=== PATIENT | male | born 1955 | race Caucasian/White ===

== ENCOUNTER 2017-03-02 18:50 | Emergency (ER) | payer OTHER ==
[~2017-03-02] VITALS: Ht 172.7 cm; Wt 119.6 kg
[~2017-03-02 18:50] MED LIST: AMBIEN10 MG PO; LEVEMIR FL100 UNIT/1 SC; LISINOPRIL20 MG PO; MOTRIN800 MG PO; OXYCODONE-APAP1 EACH PO; ZANTAC75 M1 PO
[2017-03-02] MEDS ORDERED: BACTRIM,SEPT1 TABLET PO (19:58)
[2017-03-02 20:54] LABS: HEMATOCRIT 47.4 % (38.0-50.0); MCH 25.8 PG (29.0-34.0); MCHC 31.9 G/DL (30.0-36.0); MCV 80.9 FL (86-99); MEAN PLAT.VOLUME 9.2 uM^3 (9.0-12.4); PLATELET COUNT 177 K/uL (156-360); RBC DIS.WIDTH-CV 13.3 % (11.8-14.6); RBC DIS.WIDTH-SD 39.3 % (39-53); RED BLOOD COUNT 5.86 M/uL (4.00-5.50); WHITE BLOOD COUNT 8.5 K/uL (4.1-10.2)
[2017-03-02 21:16] LABS: CHLORIDE 103 mEq/L (99-109); POTASSIUM 4.3 mEq/L (3.7-5.4); SODIUM 140 mEq/L (136-147)
[2017-03-02 21:17] LABS: GLUCOSE 211 mg/dL (70-99)
[2017-03-02 21:19] LABS: ANION GAP 11 MEQ/L (2-14)
[2017-03-02 21:21] LABS: GFR ESTIMATE (CALCULATED) > 59 mL/min/
[2017-03-02 21:54] VITALS: BP 153/75
[2017-03-02 21:55] LABS: UREA NITROGEN (BUN) 14 mg/dL (9-23)
[2017-03-03] MEDS ORDERED: NOVOLIN,HU100 UNITS/ SC (17:07)
[2017-03-03] MEDS ORDERED: GABAPENTIN800 MG PO (17:08)
== END 2017-03-02 21:57 | disposition home or self-care (01) ==
LOC: EME 18:50
PROVIDERS: Physician Assistant
DX: L03.032 Cellulitis of left toe (principal); W22.8XXA Striking against or struck by other objects, initial encounter; E11.9 Type 2 diabetes mellitus without complications; E78.5 Hyperlipidemia, unspecified; K57.92 Diverticulitis of intestine, part unspecified, without perforation or abscess without bleeding; Z79.4 Long term (current) use of insulin; Z86.018 Personal history of other benign neoplasm; Z90.49 Acquired absence of other specified parts of digestive tract; Z91.041 Radiographic dye allergy status
CPT/HCPCS: 73630; 80048; 83605; 85027; 87040; 99281; 99285; J0696; J7050